=== PATIENT | female | born 1965 | race Caucasian/White ===

== ENCOUNTER → 2021-03-07 | Outpatient (CLI) | payer BC, OTHER ==
[~2021-03-07] MED LIST: ALPRAZOLAM1 M1 PO; AMLODIPINE BESY10 MG PO; ASA81BEC PO; DOXYCYCLINE HYC20 MG PO; IBU800 MG PO; K-DUR 20 MEQ T20 MEQ PO; LAMOTRIGINE100 MG PO; LEVOTHYROXINE100 MCG PO; LORAZEPAM 1 MG T1 MG PO; MAGNESIUM250 M1 PO; MELATONIN5 MG PO; NUEDEXTA 20-101 EACH PO; PHENTERMINE HCL15 MG PO; SERTRALINE HCL100 MG PO; TRIAMTERENE/HCT1 CA1 PO
[2021-03-07 11:23] LABS: URINE BILIRUBIN NEGATIVE (Negative); URINE BLOOD NEGATIVE (Negative); URINE CLARITY CLEAR; URINE COLOR YELLOW; URINE GLUCOSE-RANDOM* NEGATIVE (Negative); URINE KETONES NEGATIVE (Negative); URINE NITRITE-REFLEX NEGATIVE (Negative); URINE PROTEIN (DIPSTICK) NEGATIVE (Negative); URINE SPECIFIC GRAVITY <= 1.005 (1.005-1.035); URINE UROBILINOGEN 0.2 E.U./dl (0.2-1.0)
[2021-03-07 11:24] LABS: HEMATOCRIT 38.2 % (37.0-47.0); MCH 29.6 pg (26.0-34.0); MCV 87.2 fL (80.0-100.0); RBC 4.38 mil/uL (4.20-5.00); RDW 13.9 % (10.5-14.5); URINE LEUKOCYTES-REFLEX 1+ (Negative); WBC 5.9 thou/uL (4.0-11.0)
[2021-03-07 11:36] LABS: INR 0.99; PROTIME 10.8 Seconds (10.5-12.1)
[2021-03-07 11:41] LABS: BACTERIA-REFLEX 1-9 Few /HPF (None Seen); CASTS None Seen /LPF (None Seen); SQUAMOUS 4-10 Moderate /LPF (0-3); URINE RBC None Seen /HPF (NONE SEEN); URINE WBC-REFLEX 0-5 Rare /HPF (0-5)
[2021-03-07 11:42] LABS: CRYSTALS None Seen /LPF (None Seen)
[2021-03-07 11:44] LABS: ALBUMIN 4.2 g/dL (3.4-5.0); CALCIUM 9.1 mg/dL (8.5-10.1); CREATININE 0.8 mg/dL (0.6-1.0); POTASSIUM 3.8 mmol/L (3.5-5.1)
--- NOTE | 2021-03-07 15:44 | EKG ---
[address] [place] [address] ELECTROCARDIOGRAM REPORT Name: GEORGE CISNEROS Room #: REG [facility]#: [id number] Admission: 03/07/21 Attend Phys: Geoff Romo MD Discharge: Date of : 69 Report #: [id number] [facility] Test Date: 2021-03-07 Test Time: 11:00:37 Pat Name: GEORGE CISNEROS Department: Room: Gender: F Pan Shover: BARBARA ZARAGOZA : 1965 Requested By: Geoff Romo Order Number: [id number] : Adelfo Thurston Measurements Intervals [place] Rate: 75 P: 11 [place]: 142 QRS: -36 QRSD: 89 T: 33 QT: 404 QTc: 452 Interpretive Statements Sinus rhythm Left axis deviation Low voltage, precordial leads No previous ECG available for comparison Electronically Signed On 03-07-2021 15:44:19 CDT by Adelfo Thurston [email or web address] <ELECTRONICALLY SIGNED> By: Adelfo Thurston MD, [facility] 03/07/21 1544 1100 Verónica Thurston MD, FACC /EPI
== END ==
LOC: PAC 10:26
PROVIDERS: ATTEND Orthopaedic Surgery Sports Medicine
DX: Z01.812 Encounter for preprocedural laboratory examination (principal); Z01.810 Encounter for preprocedural cardiovascular examination; I10 Essential (primary) hypertension; M17.11 Unilateral primary osteoarthritis, right knee; M25.561 Pain in right knee